=== PATIENT | female | born 1975 | race Two or more races ===

== ENCOUNTER 2018-03-13 10:02 | Outpatient (CLI) | payer OTHER | END 2018-03-13 10:06 | disposition home or self-care (01) | LOC: RAD 10:02 | DX: M54.2 Cervicalgia (principal); M62.838 Other muscle spasm ==

== ENCOUNTER 2019-12-18 09:00 | Outpatient (CLI) | payer OTHER | END 2019-12-18 15:00 | disposition home or self-care (01) | LOC: PPH VACUNA 09:00 | DX: Z23 Encounter for immunization (principal) ==

== ENCOUNTER 2020-03-18 11:08 | Outpatient (CLI) | payer OTHER | END 2020-03-18 15:00 | disposition home or self-care (01) | LOC: PPH VACUNA 11:08 | DX: Z23 Encounter for immunization (principal) ==

== ENCOUNTER 2020-12-29 08:00 | Outpatient (CLI) | payer OTHER | END 2020-12-29 08:30 | disposition home or self-care (01) | LOC: PPH VACUNA 08:00 | PROVIDERS: ATTEND Emergency Medicine Pediatric Emergency Medicine | DX: Z23 Encounter for immunization (principal) ==

== ENCOUNTER 2021-12-16 14:00 | Outpatient (CLI) | payer OTHER | END 2021-12-16 14:10 | disposition home or self-care (01) | LOC: PPH VACUNA 14:00 | PROVIDERS: ATTEND Emergency Medicine Pediatric Emergency Medicine | DX: Z23 Encounter for immunization (principal) ==

== ENCOUNTER 2021-12-16 14:27 | Outpatient (CLI) | payer OTHER | END 2021-12-16 14:37 | disposition home or self-care (01) | LOC: PPH VACUNA 14:27 | PROVIDERS: ATTEND Emergency Medicine Pediatric Emergency Medicine | DX: Z23 Encounter for immunization (principal) ==

== ENCOUNTER 2022-08-19 10:46 | Emergency (ER) | payer OTHER ==
[~2022-08-19] VITALS: Ht 162.6 cm; Wt 99.8 kg
[2022-08-19] MEDS ORDERED: NORFLEX100MG PO (14:37)
[2022-08-19] MEDS ORDERED: KETO10TA2 PO (14:37)
== END 2022-08-19 17:03 | disposition home or self-care (01) ==
LOC: ER 10:46
DX: S99.811A Other specified injuries of right ankle, initial encounter (principal); W10.8XXA Fall (on) (from) other stairs and steps, initial encounter; Y93.89 Activity, other specified; Y92.89 Other specified places as the place of occurrence of the external cause; Y99.8 Other external cause status; M25.571 Pain in right ankle and joints of right foot

== ENCOUNTER 2022-09-28 07:53 | Outpatient (CLI) | payer OTHER ==
[~2022-09-28 07:53] MED LIST: KETO10TA2 PO; NORFLEX100MG PO
== END 2022-09-28 07:58 | disposition home or self-care (01) ==
LOC: LAB 07:53
DX: R79.9 Abnormal finding of blood chemistry, unspecified (principal); Z13.228 Encounter for screening for other metabolic disorders; N39.0 Urinary tract infection, site not specified; R94.6 Abnormal results of thyroid function studies; R97.1 Elevated cancer antigen 125 [CA 125]

== ENCOUNTER 2022-09-28 08:56 | Outpatient (CLI) | payer OTHER | END 2022-09-28 13:32 | disposition home or self-care (01) | LOC: MAMO-SONO 08:56 | PROVIDERS: ATTEND Specialist | DX: Z12.31 Encounter for screening mammogram for malignant neoplasm of breast (principal); N63.0 Unspecified lump in unspecified breast; N92.1 Excessive and frequent menstruation with irregular cycle ==

== ENCOUNTER → 2023-06-01 08:51 | Outpatient (CLI) | payer OTHER ==
[2023-06-01 10:06] LABS: HEMATOCRIT 35.5 % (36.0-45.00); HEMOGLOBIN 11.6 g/dL (12.0-15.00); MEAN CELL VOLUME 79.3 fL (80.00-100.00); MEAN CORPUSCULAR HEMOGLOBIN 25.9 pg (27.00-32.0); MEAN CORPUSCULAR HGB CONC 32.7 g/dl (32.0-36.0); PLATELET COUNT 260 K/uL (150-450); RED BLOOD COUNT 4.48 M/uL (4.00-6.00); RED CELL DISTRIBUTION WIDTH 15.5 % (11.5-14.5)
[2023-06-01 10:14] LABS: PH,URINE 5.5 (5.0-8.0); URINE APPEARANCE Clear; URINE BILIRRUBIN Negative (NEGATIVE); URINE BLOOD Trace; URINE COLOR Yellow; URINE GLUCOSE Negative (NEGATIVE); URINE LEUKOCYTE Negative; URINE NITRATE Negative; URINE PROTEIN Negative (NEGATIVE); URINE UROBILINOGEN 0.2 E.U./dl
[2023-06-01 10:18] LABS: URINE BACTERIA 41.5 uL (0.0-1933); URINE EPITHELIAL CELLS 1.8 uL (0.0-38.8); URINE RBC 2.4 uL (0.0-20.8); URINE WBC 3.2 uL (0.0-23.2)
[2023-06-01 10:51] LABS: BILIRUBIN TOTAL 0.5 mg/dL (0.3-1.2); CALCIUM 9.3 mg/dL (8.5-10.1); CHOL HDL RATIO 3.5 (0-5.0); CREATININE SERUM 0.78 mg/dL (0.55-1.02); GFR 78.5; GLOBULINA 3.3 G/DL (2.4-3.5); POTASSIUM 3.87 mEq/L (3.5-5.1); T4 FREE 1.17 NG/ML (0.76-1.46); TOTAL PROTEIN 7.3 gm/dL (6.4-8.2); TSH 1.57 uIU/mL (0.358-3.74)
== END | disposition home or self-care (01) ==
LOC: LAB 08:51
PROVIDERS: ATTEND Specialist
DX: D50.9 Iron deficiency anemia, unspecified (principal); N39.0 Urinary tract infection, site not specified; E03.9 Hypothyroidism, unspecified; E83.51 Hypocalcemia; N95.0 Postmenopausal bleeding

== ENCOUNTER 2023-11-22 15:14 | Outpatient (CLI) | payer OTHER | END 2023-11-22 15:20 | disposition home or self-care (01) | LOC: LAB 15:14 | PROVIDERS: ATTEND Preventive Medicine Occupational Medicine | DX: B19.10 Unspecified viral hepatitis B without hepatic coma (principal) ==

== ENCOUNTER 2024-01-24 14:10 | Outpatient (CLI) | payer OTHER ==
[2024-01-25] MEDS ORDERED: DICLOFENAC POTA50 MG PO (15:16)
[2024-01-25] MEDS ORDERED: METAXALONE800 MG PO (15:17)
== END 2024-01-24 14:16 | disposition home or self-care (01) ==
LOC: RAD 14:10
PROVIDERS: ATTEND Physical Medicine & Rehabilitation
DX: M54.12 Radiculopathy, cervical region (principal); M54.14 Radiculopathy, thoracic region; M54.16 Radiculopathy, lumbar region

== ENCOUNTER 2024-01-31 01:30 | Outpatient (CLI) | payer OTHER ==
[~2024-01-31 01:30] MED LIST changes: +DICLOFENAC POTA50 MG PO; +METAXALONE800 MG PO
== END 2024-01-31 02:00 | disposition home or self-care (01) ==
LOC: PPH VACUNA 01:30
PROVIDERS: ATTEND Emergency Medicine Pediatric Emergency Medicine
DX: Z23 Encounter for immunization (principal)

== ENCOUNTER 2025-01-31 13:00 | Outpatient (CLI) | payer OTHER | END 2025-01-31 13:10 | disposition home or self-care (01) | LOC: PPH VACUNA 13:00 | PROVIDERS: ATTEND Emergency Medicine Pediatric Emergency Medicine | DX: Z23 Encounter for immunization (principal) ==

== ENCOUNTER → 2025-03-04 09:20 | Outpatient (CLI) | payer OTHER ==
[2025-03-04 10:38] LABS: BASO % 0.4 % (0.1-1.2); EOS # 0.16 (0.04-0.54); EOS % 3.1 % (0.7-7.0); LYMPH # 1.69 (1.18-3.74); LYMPH % 32.9 % (19.3-53.1); MEAN PLATELET VOLUME 9.80 fl (9.4-12.4); MONO # 0.33 (0.24-0.82); MONO % 6.4 % (4.7-12.5); NEUT # 2.91 (1.56-6.13); NEUT % 56.8 % (34.0-71.1); RED CELL DISTRIBUTION WIDTH 14.7 % (11.6-14.4)
[2025-03-04 10:41] LABS: ERYTHROCYTE SEDIMENTATION RATE 35 mm/hr (0-30)
[2025-03-04 10:43] LABS: URINE APPEARANCE Clear; URINE BILIRRUBIN Negative (NEGATIVE); URINE BLOOD Small; URINE COLOR Yellow; URINE GLUCOSE Negative (NEGATIVE); URINE KETONE Negative (NEGATIVE); URINE LEUKOCYTE Negative; URINE NITRATE Negative; URINE PROTEIN Negative (NEGATIVE); URINE UROBILINOGEN 0.2 E.U./dl
[2025-03-04 10:44] LABS: URINE BACTERIA 74.3 uL (0.0-1933); URINE EPITHELIAL CELLS 5.6 uL (0.0-38.8); URINE RBC 8.9 uL (0.0-20.8); URINE WBC 4.9 uL (0.0-23.2)
[2025-03-04 10:49] LABS: URINE CAST 0.00 uL (0.0-1.40)
[2025-03-04 11:48] LABS: ALT/SGPT 24.0 U/L (12-78); AST/SGOT 15.0 U/L (15-37); BILIRUBIN TOTAL 0.31 mg/dL (0.3-1.2); BUN CREA RATIO 21.0 (7.0-25.0); CHOL HDL RATIO 3.4 (0-5.0); CREATININE SERUM 0.71 mg/dL (0.55-1.02); GFR 86.79; GLOBULINA 3.5 G/DL (2.4-3.5); GLUCOSE FASTING 88.0 mg/dL (65-100); HDL 56.0 mg/dl (40-60); LDL 113.0 mg/dl (0-130); OSMOLALITY SERUM 281.0 MOSM/KG (275-295); T4 FREE 1.2 NG/ML (0.76-1.46); VLDL 21.0 (0-39)
[2025-03-04 11:56] LABS: TSH 1.1 uIU/mL (0.358-3.74)
[2025-03-04 14:27] LABS: T3 TOTAL 1.39 ng/ml (0.846-2.02); VITAMIN D3 25 HYDROXY 18.17 ng/ml (30-120)
== END | disposition home or self-care (01) ==
LOC: LAB 09:20
PROVIDERS: ATTEND Obstetrics & Gynecology
DX: D50.9 Iron deficiency anemia, unspecified (principal); J45.30 Mild persistent asthma, uncomplicated; R00.2 Palpitations; E55.9 Vitamin D deficiency, unspecified; M19.91 Primary osteoarthritis, unspecified site; R73.9 Hyperglycemia, unspecified; Z13.220 Encounter for screening for lipoid disorders; E03.9 Hypothyroidism, unspecified; Z12.10 Encounter for screening for malignant neoplasm of intestinal tract, unspecified; D68.9 Coagulation defect, unspecified; Z01.811 Encounter for preprocedural respiratory examination; Z13.6 Encounter for screening for cardiovascular disorders; E78.00 Pure hypercholesterolemia, unspecified